=== PATIENT | female | born 1950 | race Two or more races ===

== ENCOUNTER 2022-12-20 21:37 | Emergency (ER) | payer OTHER ==
[~2022-12-20] VITALS: Ht 157.5 cm; Wt 97.1 kg
[2022-12-20] MEDS ORDERED: DIOVAN320 MG PO (22:01)
[2022-12-20] MEDS ORDERED: HYDROCHLOROTH12.5 MG PO (22:02)
[2022-12-20] MEDS ORDERED: TOPROL XL50 M1 PO (22:02)
[2022-12-20] MEDS ORDERED: TOPROL XL100 M1 PO (22:02)
== END 2022-12-21 01:31 | disposition home or self-care (01) ==
LOC: ER 21:37
DX: S00.33XA Contusion of nose, initial encounter (principal); S00.532A Contusion of oral cavity, initial encounter; W18.39XA Other fall on same level, initial encounter; Y93.9 Activity, unspecified; Y92.89 Other specified places as the place of occurrence of the external cause; Y99.9 Unspecified external cause status; Z88.8 Allergy status to other drugs, medicaments and biological substances; E11.9 Type 2 diabetes mellitus without complications; I10 Essential (primary) hypertension; E03.9 Hypothyroidism, unspecified